=== PATIENT | male | born 1940 | race Two or more races ===

== ENCOUNTER 2024-03-14 13:35 | Emergency (ER) | payer OTHER ==
[~2024-03-14] VITALS: Ht 170.2 cm; Wt 81.8 kg
[2024-03-14] MEDS: VANCOMYCIN 1GM/200ML 200 ML IV ONE (14:45)
[2024-03-14] MEDS: SODIUM CHLORIDE 0.9% 500 ML IVB ONE (14:46)
[2024-03-14 15:05] LABS: Hemoglobin 12.1 g/dL (13.5-17.5)
[2024-03-14 15:06] LABS: Hematocrit 37.2 % (41.0-53.0); Mean Corpuscular Hemoglobin 32.3 pg (28.0-32.0); Mean Corpuscular Hgb Conc. 32.6 g/dL (32.0-36.0); Mean Corpuscular Volume 99.2 fL (80.0-100.0); Red Blood Cells 3.75 10^6/uL (4.5-5.90); Red Cell Distribution Width 14.8 % (11.8-14.3)
[2024-03-14 15:07] LABS: Basophils % (manual) 0 (0.0-2.0); Blast Cells 0; Eosinophils % (manual) 0 (0-7); Metamyelocytes % 0; Myelocytes % 0; Promyelocytes % 0; Reactive Lymphocytes 0
[2024-03-14 15:09] LABS: Chloride 106 mmol/L (98-107); Potassium 4.8 mmol/L (3.5-5.1); Sodium 133 mmol/L (136-145)
[2024-03-14 15:10] LABS: Anion Gap 5 (5-15); Carbon Dioxide 22 mmol/L (20-30)
[2024-03-14 15:11] LABS: Calcium 8.2 mg/dL (8.5-10.1)
[2024-03-14 15:15] LABS: BUN/Creatinine Ratio 22.5 (10.0-20.0); Blood Urea Nitrogen 38 mg/dL (9-23); Glucose 93 mg/dL (74-106)
[2024-03-14 15:37] LABS: Band Neutrophils % (manual) 10; Lymphocytes % (manual) 25 (10.0-50.0); Monocytes % (manual) 10 (0-12)
[2024-03-14 15:38] LABS: Platelet Estimate Increased
[2024-03-14] MEDS: PIPERACILLIN-TAZOB 3.375GM 100 ML IV ONE (17:10)
[2024-03-14] MEDS: MORPHINE SULFATE 4 MG/ML SYR/VIAL IV ONE (17:18)
[2024-03-14] MEDS: ONDANSETRON HCL 4 MG/2 ML VIAL IV ONE (17:19)
[2024-03-14 17:36] VITALS: PULSE 85; RESP 16; O2SAT 98
[2024-03-14 18:59] VITALS: BP 132/59; PULSE 82; RESP 18; TEMP 97.9; O2SAT 97
== END 2024-03-14 19:03 | disposition short-term general hospital (02) ==
LOC: EDBD 13:35 → ER 13:35
DX: N49.3 Fournier gangrene (principal); M19.90 Unspecified osteoarthritis, unspecified site; E07.9 Disorder of thyroid, unspecified; Z90.49 Acquired absence of other specified parts of digestive tract
CPT/HCPCS: 36415; 74176; 80048; 83605; 85007; 85027; 87040; 96365; 96366; 96367; 96375; 99285; J2270; J2405; J2543; J3370; J7040